=== PATIENT | female | born 1980 | race Native Hawaiian/Other Pacific Islander ===

== ENCOUNTER 2020-03-20 13:42 | Emergency (ER) | payer OTHER ==
[~2020-03-20] VITALS: Ht 167.6 cm; Wt 86.2 kg
[2020-03-20 14:24] LABS: PLATELET COUNT 256 K/uL (152-353)
[2020-03-20 14:35] LABS: POTASSIUM 3.5 mmol/L (3.6-5.2); SODIUM 140 mmol/L (136-145)
[2020-03-20 14:43] LABS: PARTIAL THROMBOPLASTIN TIME 25.2 SECONDS (24.5-33.6)
[2020-03-20 19:26] VITALS: BP 123/82; TEMP 98.5
== END 2020-03-20 19:26 | disposition home or self-care (01) ==
LOC: ED 13:42
DX: R07.89 Other chest pain (principal); M54.89 Other dorsalgia; R68.84 Jaw pain
CPT/HCPCS: 36415; 80053; 81000; 84484; 85027; 85610; 85730; 93005; 99284